=== PATIENT | female | born 1985 | race Caucasian/White ===

== ENCOUNTER 2016-10-31 15:04 | Emergency (ER) | payer OTHER ==
[2016-10-31 15:08] VITALS: BP 133/83; BMI 31.6
--- NOTE | 2016-10-31 16:22 | DR.GENAD ---
HPI - PCP Primary Care Physician: roxanna - Complaint/Symptoms Chief Complaint Doctors Comments: Patient admits to history of LUQ chest pain for several days. Denies istory of cardiopulmonary disease. Denies smokes, house with two children. Chief Complaint:: patient stated she has had upper chest wall pain that started 4 days ago. - Source History Provided: Patient - Mode of Arrival Mode of Arrival: Ambulatory - Timing Onset of Chief Complaint: 10/28/16 PMH - PMH Past Medical History: Yes Past Medical History: GERD Past Surgical History: No - Family History History of Family Medical Conditions: No - Social History Does patient currently use any type of tobacco product: Yes Have you used tobacco products in the last 12 months: Yes Type of Tobacco Use: Cigarettes How many years tobacco product used: 4 Does any household member use tobacco: Yes Alcohol Use: Rarely Do you use any recreational Drugs:: No Lives With: Family Lives Where: Home - infectious screening In the last 2 months have you had wt loss of >10#?: NO Have you had fever, night sweats or hemotysis?: No Have you traveled outside the country in the last 6 months?: No Isolation: Standard ROS - Review of Systems Eyes: No Symptoms Reported ENTM: No Symptoms Reported Respiratoy: No Symptoms Reported Cardiovascular: No Symptoms Reported Gastrointestinal/Abdominal: No Symptoms Reported Genitourinary: No Symptoms Reported Neurological: No Symptoms Reported Musculoskeletal: No Symptoms Reported Integumentary: No Symptoms Reported Hematologic/Lymphatic: No Symptoms Reported Endocrine: No Symptoms Reported Psychiatric: No Symptoms Reported All Other Systems: Reviewed and Negative PE - Vital Signs Vitals: Temperature 98.6 F Pulse Rate 89 Respiratory Rate 16 Blood Pressure 133/83 O2 Sat by Pulse Oximetry 100 - General Limitations: No Limitations General Appearance: Alert, In No Apparent Distress - Head Head Exam: Normal Inspection, Atraumatic - Eyes Eye exam: Normal Appearance, PERRL, EOMI - ENT ENT Exam: Normal Exam External Ear Exam: Normal External Inspection TM/Canal Exam: Bilateral Normal Nose Exam: Normal Nose Exam Mouth Exam: Normal Inspection Throat Exam: Normal Inspection - Neck Neck Exam: Normal Inspection, Full ROM - Chest Chest Inspection: Normal Inspection - Respiratory Respiratory Exam: Normal Lung Sounds Bilat Respiratory Exam: Bilateral Clear to Auscultation - Cardiovascular Cardiovascular Exam: Regular Rate, Normal Rhythm - Abdominal Exam Abdominal Exam: Normal Inspection Abdominal Tenderness: negative: RUQ, RLQ, LUQ, LLQ, Epigastrium, Suprapubic, Diffuse, Mild, Moderate, Severe, Other - Back Back Exam: Normal Inspection, Other (LUQ tenderness to palpation) - Neurologic Neurological Exam: Alert, Oriented X3, CN II-XII Intact - Psychiatric Psychiatric Exam: Normal Affect, Normal Mood - Skin Skin Exam: Warm, Dry, Intact ROR - Labs Reviewed Result Diagrams: 10/31/16 16:51 10/31/16 16:51 Laboratory: WBC 7.9 X10^3/uL (3.6-10.0) 10/31/16 16:51 RBC 5.12 X10^6/uL (3.5-5.4) 10/31/16 16:51 Hgb 14.7 g/dL (12.0-16.0) 10/31/16 16:51 Hct 42.7 % (36.0-47.0) 10/31/16 16:51 MCV 83.4 fL (80.0-100.0) 10/31/16 16:51 MCH 28.7 pg (27.0-34.0) 10/31/16 16:51 MCHC 34.4 g/dL (33.0-35.0) 10/31/16 16:51 RDW 12.7 % (11.6-16.5) 10/31/16 16:51 Plt Count 148 X10^3/uL (150.0-450.0) L 10/31/16 16:51 MPV 9.9 fL (7.4-11.0) 10/31/16 16:51 Neut % 61.8 % (42.0-75.0) 10/31/16 16:51 Lymph % 28.4 % (21.0-51.0) 10/31/16 16:51 Cass % 8.1 % (0.0-13.0) 10/31/16 16:51 Eos % 1.2 % (0.9-2.9) 10/31/16 16:51 Baso % 0.5 % (0.2-1.0) 10/31/16 16:51 Neut # 4.9 x10^3/uL (2.2-4.8) H 10/31/16 16:51 Lymph # 2.3 X10^3/uL (1.3-2.9) 10/31/16 16:51 Cass # 0.6 x10^3/uL (0.3-0.8) 10/31/16 16:51 Eos # 0.1 x10^3/uL (0.0-0.2) 10/31/16 16:51 Baso # 0.0 X10^3/uL (0.0-0.1) 10/31/16 16:51 Absolute Nucleated RBC 0.0 /100WBC 10/31/16 16:51 INR Target Range - 10/31/16 16:51 INR 0.96 (0.8-1.3) 10/31/16 16:51 Sodium 137 mmol/L (136-145) 10/31/16 16:51 Corrected Sodium TNP 10/31/16 16:51 Potassium 3.7 mmol/L (3.5-5.1) 10/31/16 16:51 Chloride 105 mmol/L (98-107) 10/31/16 16:51 Carbon Dioxide 25.8 mmol/L (21-32) 10/31/16 16:51 BUN 8 mg/dL (7-18) 10/31/16 16:51 Creatinine 0.75 mg/dL (0.55-1.02) 10/31/16 16:51 Est GFR (MDRD) Af Amer > 60 (>60) 10/31/16 16:51 Est GFR (MDRD) Non-Af > 60 (>60) 10/31/16 16:51 Glucose 87 mg/dL (65-99) 10/31/16 16:51 Calcium 8.6 mg/dL (8.5-10.1) 10/31/16 16:51 Corrected Calcium TNP 10/31/16 16:51 Phosphorus 3.4 mg/dL (2.6-4.7) 10/31/16 16:51 Magnesium 2.0 mg/dL (1.7-2.9) 10/31/16 16:51 Total Bilirubin 0.40 mg/dL (0.2-1.0) 10/31/16 16:51 AST 13 Units/L (15-37) L 10/31/16 16:51 ALT 28 Units/L (12-78) 10/31/16 16:51 Alkaline Phosphatase 72 Units/L (46-116) 10/31/16 16:51 Creatine Kinase 54 Units/L (26-192) 10/31/16 16:51 CK-MB (CK-2) < 1.0 ng/mL (0-4.0) 10/31/16 16:51 CK/CKMB % Calc 1.9 % (<4) 10/31/16 16:51 Troponin I < 0.02 ng/mL (0-1.5) 10/31/16 16:51 Total Protein 7.6 g/dL (6.4-8.2) 10/31/16 16:51 Albumin 3.9 g/dL (3.4-5.0) 10/31/16 16:51 Globulin 3.7 g/dL (2.5-4.5) 10/31/16 16:51 Albumin/Globulin Ratio 1.1 Ratio (1.1-2.1) 10/31/16 16:51 - XRAY XRAY Interpreted by: Self (No acute cardiopulmonary disease) - Diagnosis Discharge Problem: Chest wall pain - Discharge Plan Condition: Stable - Follow ups/Referrals Follow ups/Referrals: Whitney BOWEN [Primary Care Provider] - 3 days - Instructions
[2016-10-31 16:57] LABS: BASOPHILS % (AUTO) 0.5 % (0.2-1.0); EOSINOPHILS # (AUTO) 0.1 x10^3/uL (0.0-0.2); EOSINOPHILS % (AUTO) 1.2 % (0.9-2.9); HEMATOCRIT 42.7 % (36.0-47.0); HEMOGLOBIN 14.7 g/dL (12.0-16.0); LYMPHOCYTES # (AUTO) 2.3 X10^3/uL (1.3-2.9); LYMPHOCYTES % (AUTO) 28.4 % (21.0-51.0); MEAN CORPUSCULAR HEMOGLOBIN 28.7 pg (27.0-34.0); MEAN CORPUSCULAR HGB CONC 34.4 g/dL (33.0-35.0); MEAN CORPUSCULAR VOLUME 83.4 fL (80.0-100.0); MEAN PLATELET VOLUME 9.9 fL (7.4-11.0); MONOCYTES # (AUTO) 0.6 x10^3/uL (0.3-0.8); MONOCYTES % (AUTO) 8.1 % (0.0-13.0); NEUTROPHILS # (AUTO) 4.9 x10^3/uL (2.2-4.8); NEUTROPHILS % (AUTO) 61.8 % (42.0-75.0); PLATELET COUNT 148 X10^3/uL (150.0-450.0); RED BLOOD COUNT 5.12 X10^6/uL (3.5-5.4); RED CELL DISTRIBUTION WIDTH 12.7 % (11.6-16.5); WHITE BLOOD COUNT 7.9 X10^3/uL (3.6-10.0)
[2016-10-31 17:14] LABS: TROPONIN I < 0.02 ng/mL (0-1.5); eGFR BLACK RACES > 60 (>60); eGFR NON BLACK RACES > 60 (>60)
[2016-10-31 17:18] LABS: ALANINE AMINOTRANSFERASE 28 Units/L (12-78); ALBUMIN 3.9 g/dL (3.4-5.0); ALKALINE PHOSPHATASE 72 Units/L (46-116); ASPARTATE AMINO TRANSFERASE 13 Units/L (15-37); CKMB % 1.9 % (<4); CREATINE KINASE 54 Units/L (26-192); CREATINE KINASE MB < 1.0 ng/mL (0-4.0); PHOSPHORUS 3.4 mg/dL (2.6-4.7); TOTAL PROTEIN 7.6 g/dL (6.4-8.2)
--- NOTE | 2016-10-31 17:48 | RAD ---
HISTORY: Chest pain Study: Two view chest Comparison: None Findings: The lungs are clear without consolidation, effusion or pneumothorax. The cardiac and mediastinal co ntours are within normal limits. The soft tissues are unremarkable. IMPRESSION: 1. No acute cardiopulmonary abnormality. Reported By:
[2016-11-01 14:43] LABS: BLOOD UREA NITROGEN 8 mg/dL (7-18); CARBON DIOXIDE 25.8 mmol/L (21-32); CHLORIDE 105 mmol/L (98-107); SODIUM 137 mmol/L (136-145)
[2016-11-01 14:44] LABS: CALCIUM 8.6 mg/dL (8.5-10.1); CREATININE 0.75 mg/dL (0.55-1.02); GLUCOSE 87 mg/dL (65-99)
== END 2016-10-31 18:02 | disposition home or self-care (01) ==
LOC: ER 15:18
DX: R07.89 Other chest pain (principal)
CPT/HCPCS: 36415; 71020; 80053; 82550; 82553; 83735; 84100; 84484; 85025; 85610; 93005; 93010; 99283